=== PATIENT | female | born 1940 | race Hispanic/Latino ===

== ENCOUNTER → 2018-08-25 | Outpatient (CLI) | payer OTHER ==
[~2018-08-25] MED LIST: APIX5TAB PO; ASPI-555 PO; CALC-687 PO; DILT240C50 PO; GLIM2TAB3 PO; INSLAN SQ; LOSA50TA64 PO; METF-446 PO; METO-391 PO; ROSU20TA23 PO
== END | disposition home or self-care (01) ==
LOC: SHCH 11:20
PROVIDERS: ATTEND Internal Medicine Cardiovascular Disease
DX: I70.291 Other atherosclerosis of native arteries of extremities, right leg (principal)
CPT/HCPCS: 93925

== ENCOUNTER → 2018-09-08 | Outpatient (CLI) | payer OTHER ==
[~2018-09-08] VITALS: Ht 152.4 cm; Wt 74.4 kg
[~2018-09-08] MED LIST changes: +REGADENOSON 0.4 MG/5 ML PF SYG IVP SCH
== END | disposition home or self-care (01) ==
LOC: SHCH 08:52
PROVIDERS: ATTEND Internal Medicine Cardiovascular Disease
DX: I25.10 Atherosclerotic heart disease of native coronary artery without angina pectoris (principal)
CPT/HCPCS: 78452; 93017; 96374; A9500 ×2; J2785

== ENCOUNTER → 2018-10-09 | Outpatient (CLI) | payer OTHER ==
[~2018-10-09] MED LIST changes: -REGADENOSON 0.4 MG/5 ML PF SYG IVP SCH
== END | disposition home or self-care (01) ==
LOC: SHCH 14:39
PROVIDERS: ATTEND Internal Medicine Cardiovascular Disease
DX: I08.1 Rheumatic disorders of both mitral and tricuspid valves (principal); I27.20 Pulmonary hypertension, unspecified; I25.10 Atherosclerotic heart disease of native coronary artery without angina pectoris
CPT/HCPCS: 93306

== ENCOUNTER → 2020-03-06 | Outpatient (CLI) | payer OTHER ==
[~2020-03-06] MED LIST changes: -ASPI-555 PO; +ASPI-556 PO; -GLIM2TAB3 PO; +GLIM2TAB30 PO
== END | disposition home or self-care (01) ==
LOC: SHCH 10:00
PROVIDERS: ATTEND Internal Medicine Cardiovascular Disease
DX: I11.9 Hypertensive heart disease without heart failure (principal); I87.8 Other specified disorders of veins
CPT/HCPCS: 93306

== ENCOUNTER 2021-10-14 15:59 | Observation (INO) | payer OTHER ==
[~2021-10-14] VITALS: Ht 154.9 cm; Wt 68.9 kg
[2021-10-14 16:16] LABS: BASOPHILS % (AUTO) 0.4 % (0.0-5.0); EOSINOPHILS % (AUTO) 0.2 % (0.0-8.0); HEMATOCRIT 41.2 % (36-48); LYMPHOCYTES % (AUTO) 15.5 % (21.0-51.0); MEAN CORPUSCULAR HEMOGLOBIN 30.1 pg (27.0-33.0); MEAN CORPUSCULAR HGB CONC 34.5 g/dL (32.0-36.0); MEAN CORPUSCULAR VOLUME 87.5 fL (79-99); MONOCYTES % (AUTO) 3.2 % (3.0-13.0); NEUTROPHILS % (AUTO) 80.2 % (40.0-77.0); PLATELET COUNT (AUTO) 201 K/uL (130-400); RED BLOOD CELL COUNT(AUTO) 4.71 MIL/uL (4.00-5.50); RED CELL DISTRIBUTION WIDTH 13.5 % (11.0-15.5); WHITE BLOOD COUNT (AUTO) 8.4 K/uL (4.8-10.8)
[2021-10-14 16:29] LABS: CREATININE 0.8 mg/dL (0.5-1.5); POTASSIUM 3.9 mmol/L (3.5-5.1)
[2021-10-14] MEDS ORDERED: MECLIZINE HCL 25 MG TABLET PO ONE (16:30)
[2021-10-14] MEDS ORDERED: ONDANSETRON 4MG INJ IVP ONE (16:30)
[2021-10-14 16:33] LABS: ALBUMIN 4.1 g/dL (3.5-5.0); TOTAL PROTEIN, SERUM 8.2 g/dL (6.0-8.3)
[2021-10-14] MEDS ORDERED: 0.9%NACL 1000ML 1,000 ML IV ONE (17:41)
[2021-10-14] MEDS ORDERED: MECL-160 PO (18:07)
[2021-10-14] MEDS ORDERED: ONDA4TAB10 PO (18:07)
[2021-10-14] MEDS: 0.9%NACL 1000ML 1,000 ML IV SCH ×4 (18:13→19:19)
[2021-10-14] MEDS ORDERED: PROMETHAZINE HCL 25 MG/ML 1ML AMPULE IVPB SCH (18:30)
[2021-10-14] MEDS ORDERED: DOCUSATE SODIUM 100 MG CAP PO PRN (19:30)
[2021-10-14] MEDS ORDERED: TEMAZEPAM 15 MG CAPSULE PO PRN (19:30)
[2021-10-14] MEDS ORDERED: LACTULOSE 20 GM/30 ML UDCUP PO PRN (19:30)
[2021-10-14] MEDS ORDERED: ONDANSETRON 4MG INJ IVP PRN (19:30)
[2021-10-14] MEDS ORDERED: CLONIDINE HCL 0.1 MG TABLET PO PRN (19:30)
[2021-10-14] MEDS ORDERED: LABETALOL 20MG SYG IV PRN (19:30)
[2021-10-14] MEDS ORDERED: ACETAMINOPHEN 325 MG TAB PO PRN (19:30)
[2021-10-14] MEDS ORDERED: ACETAMINOPHEN 650 MG SUPPOSITORY RC PRN (19:30)
[2021-10-14] MEDS: ATORVASTATIN 40 MG TABLET PO SCH (20:50)
[2021-10-14] MEDS: APIXABAN 5 MG TABLET PO SCH (20:50)
[2021-10-14] MEDS: MECLIZINE HCL 25 MG TABLET PO SCH (20:50)
[2021-10-14] MEDS: INSULIN GLARGINE 100 UNITS/ML 10 ML VIAL SQ SCH (21:00)
[2021-10-14] MEDS ORDERED: CLONAZEPAM 1MG TAB PO STA (21:29)
[2021-10-14] MEDS ORDERED: ASPIRIN 325MG EC TAB PO STA (21:42)
[2021-10-14 21:46] VITALS: BP 137/82
[2021-10-14] MEDS ORDERED: PROPRANOLOL HCL 10 MG TAB PO STA (21:48)
[2021-10-14 23:22] VITALS: BP 137/86
[2021-10-15] MEDS: 0.9%NACL 1000ML 1,000 ML IV SCH (02:10)
[2021-10-15 03:20] VITALS: BP 125/64
[2021-10-15 04:52] LABS: BASOPHILS % (AUTO) 0.2 % (0.0-5.0); HEMATOCRIT 35.6 % (36-48); LYMPHOCYTES % (AUTO) 25.9 % (21.0-51.0); MEAN CORPUSCULAR HEMOGLOBIN 30.2 pg (27.0-33.0); MEAN CORPUSCULAR HGB CONC 34.6 g/dL (32.0-36.0); MEAN CORPUSCULAR VOLUME 87.5 fL (79-99); MONOCYTES % (AUTO) 9.9 % (3.0-13.0); NEUTROPHILS % (AUTO) 62.6 % (40.0-77.0); PLATELET COUNT (AUTO) 179 K/uL (130-400); RED BLOOD CELL COUNT(AUTO) 4.07 MIL/uL (4.00-5.50); RED CELL DISTRIBUTION WIDTH 13.6 % (11.0-15.5); WHITE BLOOD COUNT (AUTO) 9.8 K/uL (4.8-10.8)
[2021-10-15 05:20] LABS: CREATININE 0.7 mg/dL (0.5-1.5); MAGNESIUM 1.4 mg/dL (1.80-2.40); PHOSPHORUS 2.9 mg/dL (2.5-4.9); POTASSIUM 3.4 mmol/L (3.5-5.1); THYROID STIMULATING HORMONE 1.16 uIU/mL (0.36-3.74)
[2021-10-15 05:21] LABS: B-TYPE NATRIURETIC PEPTIDE 263 pg/mL (0-100)
[2021-10-15] MEDS ORDERED: MAGNESIUM 2GM PREMIX 50ML 50 ML IV PRN (06:00)
[2021-10-15] MEDS ORDERED: GLUCAGON 1MG KIT 1 MG ML IM PRN (06:00)
[2021-10-15] MEDS ORDERED: KCL 20 MEQ ERTAB PO PRN (06:00)
[2021-10-15] MEDS ORDERED: LIDOCAINE HCL-MPF 1% 2ML VIAL IV PRN (06:00)
[2021-10-15] MEDS ORDERED: POTASSIUM CHLORIDE 10% ELIXIR 20 MEQ/15 ML UDCUP PO PRN (06:00)
[2021-10-15] MEDS ORDERED: POTASSIUM CHLORIDE 20MEQ/100ML 100 ML IV PRN (06:00)
[2021-10-15] MEDS ORDERED: DEXTROSE 50%-WATER 50 ML DISP.SYRIN IV PRN (06:00)
[2021-10-15] MEDS: INSULIN HUMULIN R 100 UNIT/ML 3ML SQ SCH ×4 (06:09→21:00)
[2021-10-15 07:00] LABS: APPEARANCE,URINE CLEAR (CLEAR); BILIRUBIN,URINE NEGATIVE (NEGATIVE); COLOR,URINE YELLOW (YELLOW); GLUCOSE, URINE (UA) NEGATIVE (NEGATIVE); KETONES,URINE NEGATIVE (NEGATIVE); LEUKOCYTE ESTERASE ,URINE SMALL (NEGATIVE); NITRATE,URINE NEGATIVE (NEGATIVE); OCCULT BLOOD,URINE SMALL (NEGATIVE); PROTEIN,URINE NEGATIVE (NEGATIVE); UROBILINOGEN,URINE 0.2 mg/dL (0.2-1.0)
[2021-10-15 07:23] LABS: BACTERIA,URINE Rare /HPF (None Seen); RBC,URINE 0-1 /HPF (0-1); SQUAMOUS EPITHELIAL CELL,UR Rare /HPF (0-2); WBC,URINE 0-1 /HPF (0-1)
[2021-10-15 08:00] VITALS: BP 120/60
[2021-10-15] MEDS: CA 600MG+VIT D 400 UNIT TAB 1 TAB TABLET PO SCH (10:25)
[2021-10-15] MEDS: METOPROLOL SUCCINATE 50 MG TAB.SR.24H PO SCH (10:25)
[2021-10-15] MEDS: LOSARTAN 50 MG TABLET PO SCH (10:25)
[2021-10-15] MEDS: APIXABAN 5 MG TABLET PO SCH ×2 (10:26→20:40)
[2021-10-15] MEDS: MECLIZINE HCL 25 MG TABLET PO SCH ×3 (10:26→20:40)
[2021-10-15] MEDS: ASPIRIN 81 MG EC TAB PO SCH (10:26)
[2021-10-15] MEDS ORDERED: MAGNESIUM 2GM PREMIX 50ML 50 ML IV SCH (11:00)
[2021-10-15 12:00] VITALS: BP 117/56
[2021-10-15 16:00] VITALS: BP 121/67
[2021-10-15] MEDS ORDERED: IOHEXOL 350 MG/ML 100ML INFUS..BTL IV ONE (16:01)
[2021-10-15 20:00] VITALS: BP 142/74
[2021-10-15] MEDS: ATORVASTATIN 40 MG TABLET PO SCH (20:40)
[2021-10-15] MEDS: INSULIN GLARGINE 100 UNITS/ML 10 ML VIAL SQ SCH (22:09)
[2021-10-16] VITALS: BP 136/67
[2021-10-16 04:00] VITALS: BP 143/87
[2021-10-16 06:10] LABS: HEMATOCRIT 37.5 % (36-48); MEAN CORPUSCULAR HEMOGLOBIN 29.9 pg (27.0-33.0); MEAN CORPUSCULAR HGB CONC 33.6 g/dL (32.0-36.0); MEAN CORPUSCULAR VOLUME 89.1 fL (79-99); RED BLOOD CELL COUNT(AUTO) 4.21 MIL/uL (4.00-5.50); RED CELL DISTRIBUTION WIDTH 14.1 % (11.0-15.5); WHITE BLOOD COUNT (AUTO) 7.7 K/uL (4.8-10.8)
[2021-10-16 06:21] LABS: CREATININE 0.9 mg/dL (0.5-1.5); MAGNESIUM 1.7 mg/dL (1.80-2.40); POTASSIUM 3.8 mmol/L (3.5-5.1)
[2021-10-16] MEDS: INSULIN HUMULIN R 100 UNIT/ML 3ML SQ SCH ×4 (06:48→20:28)
[2021-10-16 08:00] VITALS: BP 155/95
[2021-10-16] MEDS: CA 600MG+VIT D 400 UNIT TAB 1 TAB TABLET PO SCH (08:09)
[2021-10-16] MEDS: APIXABAN 5 MG TABLET PO SCH ×2 (08:10→20:21)
[2021-10-16] MEDS: LOSARTAN 50 MG TABLET PO SCH (08:10)
[2021-10-16] MEDS: METOPROLOL SUCCINATE 50 MG TAB.SR.24H PO SCH (08:10)
[2021-10-16] MEDS: ASPIRIN 81 MG EC TAB PO SCH (08:10)
[2021-10-16] MEDS: MECLIZINE HCL 25 MG TABLET PO SCH ×3 (08:10→20:21)
[2021-10-16 12:00] VITALS: BP 126/73
[2021-10-16 16:00] VITALS: BP 138/77
[2021-10-16 20:00] VITALS: BP 145/75
[2021-10-16] MEDS: ATORVASTATIN 40 MG TABLET PO SCH (20:21)
[2021-10-16] MEDS: INSULIN GLARGINE 100 UNITS/ML 10 ML VIAL SQ SCH (20:37)
[2021-10-17] VITALS: BP 147/84
[2021-10-17 04:00] VITALS: BP 113/71
[2021-10-17] MEDS: INSULIN HUMULIN R 100 UNIT/ML 3ML SQ SCH ×4 (06:30→20:52)
[2021-10-17 07:20] VITALS: BP 135/73
[2021-10-17] MEDS: ASPIRIN 81 MG EC TAB PO SCH (08:46)
[2021-10-17] MEDS: LOSARTAN 50 MG TABLET PO SCH (08:47)
[2021-10-17] MEDS: MECLIZINE HCL 25 MG TABLET PO SCH ×3 (08:47→20:53)
[2021-10-17] MEDS: METOPROLOL SUCCINATE 50 MG TAB.SR.24H PO SCH (08:47)
[2021-10-17] MEDS: APIXABAN 5 MG TABLET PO SCH ×2 (08:47→20:53)
[2021-10-17] MEDS: CA 600MG+VIT D 400 UNIT TAB 1 TAB TABLET PO SCH (08:47)
[2021-10-17 11:20] VITALS: BP 126/89
[2021-10-17 15:25] VITALS: BP 137/78
[2021-10-17 20:30] VITALS: BP 120/54
[2021-10-17] MEDS: ATORVASTATIN 40 MG TABLET PO SCH (20:53)
[2021-10-18 00:12] VITALS: BP 122/75
[2021-10-18 04:36] VITALS: BP 124/76
[2021-10-18] MEDS: INSULIN HUMULIN R 100 UNIT/ML 3ML SQ SCH ×4 (06:49→21:05)
[2021-10-18 07:59] VITALS: BP 163/77
[2021-10-18 08:48] LABS: CREATININE 0.9 mg/dL (0.5-1.5); POTASSIUM 3.8 mmol/L (3.5-5.1)
[2021-10-18] MEDS: ASPIRIN 81 MG EC TAB PO SCH (08:48)
[2021-10-18] MEDS: APIXABAN 5 MG TABLET PO SCH ×2 (08:49→21:04)
[2021-10-18] MEDS: METOPROLOL SUCCINATE 50 MG TAB.SR.24H PO SCH (08:49)
[2021-10-18] MEDS: MECLIZINE HCL 25 MG TABLET PO SCH ×3 (08:49→21:04)
[2021-10-18] MEDS: LOSARTAN 50 MG TABLET PO SCH (08:49)
[2021-10-18] MEDS: CA 600MG+VIT D 400 UNIT TAB 1 TAB TABLET PO SCH (08:49)
[2021-10-18 12:00] VITALS: BP 109/57
[2021-10-18 15:57] VITALS: BP 115/64
[2021-10-18 19:35] VITALS: BP 113/73
[2021-10-18] MEDS ORDERED: MAGN500C4 PO (20:06)
[2021-10-18] MEDS: ATORVASTATIN 40 MG TABLET PO SCH (21:04)
== END 2021-10-18 22:30 ==
LOC: EDH 15:59 → EDHIP 19:01 → 3DH 20:35
PROVIDERS: ADMIT Internal Medicine; ATTEND Internal Medicine
DX: R42 Dizziness and giddiness (principal); Z20.822 Contact with and (suspected) exposure to COVID-19; I99.8 Other disorder of circulatory system; E11.65 Type 2 diabetes mellitus with hyperglycemia; S06.0X9A Concussion with loss of consciousness of unspecified duration, initial encounter; E78.00 Pure hypercholesterolemia, unspecified; G25.71 Drug induced akathisia; T42.6X5A Adverse effect of other antiepileptic and sedative-hypnotic drugs, initial encounter; E86.0 Dehydration; H55.00 Unspecified nystagmus; I10 Essential (primary) hypertension; I48.91 Unspecified atrial fibrillation; J45.909 Unspecified asthma, uncomplicated; R29.700 NIHSS score 0; Z79.01 Long term (current) use of anticoagulants; Z98.49 Cataract extraction status, unspecified eye; Z79.899 Other long term (current) drug therapy; Z98.890 Other specified postprocedural states; Z79.84 Long term (current) use of oral hypoglycemic drugs; Z79.4 Long term (current) use of insulin; W19.XXXA Unspecified fall, initial encounter; Y92.89 Other specified places as the place of occurrence of the external cause; Y93.89 Activity, other specified; Y99.8 Other external cause status
CPT/HCPCS: 96361 ×2; 96375; 99285; 84484 ×2; 80053; 85025 ×2; 82948 ×19; 36415 ×4; 87635; 71045; 70450; 93306 ×2; 93356; 93005 ×2; 96365; 96366; 83036; 84443; 83735 ×2; 84100; 80048 ×3; 83880; 82140; 82607; 82746; 81001; 70496; 70498; 70551; 97039 ×4; 85027; 97161; 97116 ×2; G0378 ×96; C9803; J7030 ×3; J2405; J3475; Q9967; J1815 ×5

== ENCOUNTER 2022-01-04 12:51 | Observation (INO) | payer OTHER ==
[~2022-01-04] VITALS: Ht 152.4 cm; Wt 67.7 kg
[~2022-01-04 12:51] MED LIST changes: -DILT240C50 PO; -GLIM2TAB30 PO; +MAGN500C4 PO; +MECL-160 PO; -METF-446 PO; +ONDA4TAB10 PO; -ROSU20TA23 PO
[2022-01-04] MEDS ORDERED: DILTIAZEM 25MG INJ IVP STA (13:18)
[2022-01-04 13:56] LABS: BASOPHILS % (AUTO) 0.2 % (0.0-5.0); EOSINOPHILS % (AUTO) 0.5 % (0.0-8.0); HEMATOCRIT 37.8 % (36-48); MEAN CORPUSCULAR HGB CONC 34.4 g/dL (32.0-36.0); MEAN CORPUSCULAR VOLUME 87.1 fL (79-99); MONOCYTES % (AUTO) 2.5 % (3.0-13.0); NEUTROPHILS % (AUTO) 94.3 % (40.0-77.0); PLATELET COUNT (AUTO) 229 K/uL (130-400); RED BLOOD CELL COUNT(AUTO) 4.34 MIL/uL (4.00-5.50); RED CELL DISTRIBUTION WIDTH 13.3 % (11.0-15.5); WHITE BLOOD COUNT (AUTO) 19.8 K/uL (4.8-10.8)
[2022-01-04 14:18] LABS: CREATININE 0.8 mg/dL (0.5-1.5); POTASSIUM 3.9 mmol/L (3.5-5.1)
[2022-01-04 14:24] LABS: ALBUMIN 3.5 g/dL (3.5-5.0); TOTAL PROTEIN, SERUM 7.5 g/dL (6.0-8.3)
[2022-01-04 14:32] LABS: B-TYPE NATRIURETIC PEPTIDE 238 pg/mL (0-100)
[2022-01-04] MEDS ORDERED: PHARMACY COMMUNICATION MISC STA (14:47)
[2022-01-04] MEDS ORDERED: DILTIAZEM 125 MG/25 ML INJ 125 MG in 0.9%NACL 100ML 100 ML IV PRN (15:00)
[2022-01-04] MEDS ORDERED: IOHEXOL 350 MG/ML 100ML INFUS..BTL IV ONE (16:23)
[2022-01-04] MEDS ORDERED: KCL 20 MEQ ERTAB PO PRN (21:30)
[2022-01-04] MEDS ORDERED: LACTULOSE 20 GM/30 ML UDCUP PO PRN (21:30)
[2022-01-04] MEDS ORDERED: DEXTROSE 50%-WATER 50 ML DISP.SYRIN IV PRN (21:30)
[2022-01-04] MEDS ORDERED: TEMAZEPAM 15 MG CAPSULE PO PRN (21:30)
[2022-01-04] MEDS ORDERED: GLUCAGON 1MG KIT 1 MG ML IM PRN (21:30)
[2022-01-04] MEDS ORDERED: CLONIDINE HCL 0.1 MG TABLET PO PRN (21:30)
[2022-01-04] MEDS ORDERED: LIDOCAINE HCL-MPF 1% 2ML VIAL IV PRN (21:30)
[2022-01-04] MEDS ORDERED: ACETAMINOPHEN 650 MG SUPPOSITORY RC PRN (21:30)
[2022-01-04] MEDS ORDERED: ALBUTEROL 0.083% 2.5 MG/3 ML INH IH PRN (21:30)
[2022-01-04] MEDS ORDERED: ONDANSETRON 4MG INJ IVP PRN (21:30)
[2022-01-04] MEDS ORDERED: HYDRALAZINE 20MG/ML VIAL IV PRN (21:30)
[2022-01-04] MEDS ORDERED: POTASSIUM CHLORIDE 20MEQ/100ML 100 ML IV PRN (21:30)
[2022-01-04] MEDS ORDERED: LABETALOL 20MG SYG IV PRN (21:30)
[2022-01-04] MEDS ORDERED: DOCUSATE SODIUM 100 MG CAP PO PRN (21:30)
[2022-01-04] MEDS ORDERED: ACETAMINOPHEN 325 MG TAB PO PRN (21:30)
[2022-01-04] MEDS: IPRATROPIUM 0.5 MG/2.5 ML INH IH SCH (23:06)
[2022-01-05] VITALS (8 sets, daily range): BP systolic 105–146; BP diastolic 47–86
[2022-01-05 04:07] LABS: BASOPHILS % (AUTO) 0.4 % (0.0-5.0); EOSINOPHILS % (AUTO) 6.6 % (0.0-8.0); HEMATOCRIT 32.9 % (36-48); LYMPHOCYTES % (AUTO) 9.5 % (21.0-51.0); MEAN CORPUSCULAR HEMOGLOBIN 29.7 pg (27.0-33.0); MEAN CORPUSCULAR VOLUME 87.3 fL (79-99); MONOCYTES % (AUTO) 4.8 % (3.0-13.0); NEUTROPHILS % (AUTO) 78.2 % (40.0-77.0); PLATELET COUNT (AUTO) 207 K/uL (130-400); RED BLOOD CELL COUNT(AUTO) 3.77 MIL/uL (4.00-5.50); RED CELL DISTRIBUTION WIDTH 13.5 % (11.0-15.5); WHITE BLOOD COUNT (AUTO) 10.9 K/uL (4.8-10.8)
[2022-01-05 04:18] LABS: CREATININE 0.7 mg/dL (0.5-1.5); MAGNESIUM 1.5 mg/dL (1.80-2.40); PHOSPHORUS 2.8 mg/dL (2.5-4.9); POTASSIUM 3.5 mmol/L (3.5-5.1)
[2022-01-05] MEDS: MAGNESIUM 2GM PREMIX 50ML 50 ML IV PRN (04:33)
[2022-01-05] MEDS: INSULIN HUMULIN R 100 UNIT/ML 3ML SQ SCH ×4 (05:15→19:33)
[2022-01-05] MEDS: IPRATROPIUM 0.5 MG/2.5 ML INH IH SCH ×3 (07:18→18:49)
[2022-01-05] MEDS: PANTOPRAZOLE 40 MG/VIAL IVP SCH ×2 (08:19→19:33)
[2022-01-05] MEDS: METOPROLOL SUCCINATE 50 MG TAB.SR.24H PO SCH (08:20)
[2022-01-05] MEDS: LEVOFLOXACIN 750 MG/D5W 150ML BAG IVPB SCH (08:21)
[2022-01-05] MEDS ORDERED: ENOXAPARIN SODIUM 1 MG/KG SQ SCH (09:00)
[2022-01-05] MEDS ORDERED: ENOXAPARIN SODIUM 80 MG/0.8 ML SQ SCH (09:00)
[2022-01-05] MEDS ORDERED: APIXABAN 5 MG TABLET PO SCH (13:58)
[2022-01-05] MEDS: APIXABAN 5 MG TABLET PO SCH (19:33)
[2022-01-06] MEDS: IPRATROPIUM 0.5 MG/2.5 ML INH IH SCH ×3 (02:48→11:17)
[2022-01-06 03:31] VITALS: BP 130/74
[2022-01-06 04:08] LABS: HEMATOCRIT 34.5 % (36-48); MEAN CORPUSCULAR HEMOGLOBIN 29.7 pg (27.0-33.0); MEAN CORPUSCULAR HGB CONC 34.2 g/dL (32.0-36.0); MEAN CORPUSCULAR VOLUME 86.9 fL (79-99); RED BLOOD CELL COUNT(AUTO) 3.97 MIL/uL (4.00-5.50); RED CELL DISTRIBUTION WIDTH 13.2 % (11.0-15.5); WHITE BLOOD COUNT (AUTO) 7.6 K/uL (4.8-10.8)
[2022-01-06 04:24] LABS: ALBUMIN 2.9 g/dL (3.5-5.0); CREATININE 0.8 mg/dL (0.5-1.5); MAGNESIUM 1.6 mg/dL (1.80-2.40); POTASSIUM 3.5 mmol/L (3.5-5.1); TOTAL PROTEIN, SERUM 6.7 g/dL (6.0-8.3)
[2022-01-06] MEDS: INSULIN HUMULIN R 100 UNIT/ML 3ML SQ SCH ×2 (05:31→11:30)
[2022-01-06 07:44] VITALS: BP 137/78
[2022-01-06] MEDS: LEVOFLOXACIN 750 MG/D5W 150ML BAG IVPB SCH (07:46)
[2022-01-06] MEDS: APIXABAN 5 MG TABLET PO SCH (07:52)
[2022-01-06] MEDS: POTASSIUM CHLORIDE 10% ELIXIR 20 MEQ/15 ML UDCUP PO PRN ×2 (07:52→12:15)
[2022-01-06] MEDS: METOPROLOL SUCCINATE 50 MG TAB.SR.24H PO SCH (07:52)
[2022-01-06] MEDS: PANTOPRAZOLE 40 MG/VIAL IVP SCH (07:53)
[2022-01-06 11:42] VITALS: BP 119/70
[2022-01-06] MEDS: MAGNESIUM 2GM PREMIX 50ML 50 ML IV PRN (12:17)
[2022-01-06] MEDS ORDERED: LEVO750T68 PO (14:52)
[2022-01-06] MEDS ORDERED: METO-391 PO (14:52)
[2022-01-06] MEDS ORDERED: METF-444 PO (15:15)
[2022-01-06] MEDS ORDERED: FLUT1DIS IH (15:15)
[2022-01-06] MEDS ORDERED: GUAI600T50 PO (15:16)
[2022-01-06] MEDS ORDERED: ROSU20TA31 PO (15:18)
[2022-01-06] MEDS ORDERED: ALBU0.63 IH (15:18)
[2022-01-06] MEDS ORDERED: PANT20TA18 PO (15:20)
== END 2022-01-06 16:20 | disposition home or self-care (01) ==
LOC: EDH 12:51 → EDHIP 19:04 → 2AH 23:14
PROVIDERS: ADMIT Internal Medicine Critical Care Medicine; ATTEND Internal Medicine Critical Care Medicine
DX: A41.9 Sepsis, unspecified organism (principal); I48.20 Chronic atrial fibrillation, unspecified; D72.829 Elevated white blood cell count, unspecified; N39.0 Urinary tract infection, site not specified; I10 Essential (primary) hypertension; E11.9 Type 2 diabetes mellitus without complications; E78.00 Pure hypercholesterolemia, unspecified; E78.5 Hyperlipidemia, unspecified; J45.909 Unspecified asthma, uncomplicated; Z79.4 Long term (current) use of insulin; Z79.82 Long term (current) use of aspirin; Z98.49 Cataract extraction status, unspecified eye; Z79.899 Other long term (current) drug therapy; Z98.890 Other specified postprocedural states
CPT/HCPCS: 96376 ×3; 96365; 96366 ×3; 99285; 84484; 80053 ×2; 83880; 85025 ×2; 85378; 87040 ×2; 83605; 36415 ×3; 71045; 71270; 74176; 93005; 94640 ×6; 94664; 96372; 96375; 96367 ×2; 83735 ×2; 84100; 80048; 87880; 87804 ×2; 82948 ×7; 87635; 93306; 84145; 85027; G0378 ×42; J3490; Q9967; J1815; J3475 ×2; J1956 ×2; J1650; C9113 ×3

== ENCOUNTER → 2022-08-16 | Outpatient (CLI) | payer OTHER ==
[~2022-08-16] MED LIST changes: +ALBU0.63 IH; +FLUT1DIS IH; +GUAI600T50 PO; +LEVO750T68 PO; +METF-444 PO; +PANT20TA18 PO; +ROSU20TA73 PO
== END | disposition home or self-care (01) ==
LOC: RAH 13:54
PROVIDERS: ATTEND Internal Medicine
DX: I62.00 Nontraumatic subdural hemorrhage, unspecified (principal)
CPT/HCPCS: 70450

== ENCOUNTER 2022-11-20 10:11 | Emergency (ER) | payer OTHER ==
[~2022-11-20] VITALS: Ht 152.4 cm; Wt 72.6 kg
[2022-11-20] MEDS ORDERED: IOHEXOL-350 75 ML VIAL IV ONE (10:12)
[2022-11-20] MEDS ORDERED: ASPIRIN 325MG TAB PO ONE (11:00)
[2022-11-20 11:22] LABS: BASOPHILS # (AUTO) 0.04 K/uL (0.00-0.20); BASOPHILS % (AUTO) 0.4 % (0.0-5.0); EOSINOPHILS # (AUTO) 0.03 K/uL (0.00-0.70); EOSINOPHILS % (AUTO) 0.3 % (0.0-8.0); HEMATOCRIT 41.5 % (36-48); IMMATURE GRANULOCYTE ABSOLUTE 0.04 K/uL (0-1); LYMPHOCYTES # (AUTO) 1.6 K/uL (1.0-4.8); LYMPHOCYTES % (AUTO) 17.7 % (21.0-51.0); MEAN CORPUSCULAR HEMOGLOBIN 30.3 pg (27.0-33.0); MEAN CORPUSCULAR HGB CONC 34.5 g/dL (32.0-36.0); MEAN CORPUSCULAR VOLUME 87.9 fL (79-99); MONOCYTES # (AUTO) 0.5 K/uL (0.1-1.0); MONOCYTES % (AUTO) 5.2 % (3.0-13.0); PLATELET COUNT (AUTO) 185 K/uL (130-400); RED BLOOD CELL COUNT(AUTO) 4.72 MIL/uL (4.00-5.50); RED CELL DISTRIBUTION WIDTH 13.4 % (11.0-15.5); WHITE BLOOD COUNT (AUTO) 9.2 K/uL (4.8-10.8)
[2022-11-20 11:24] LABS: CREATININE 0.8 mg/dL (0.5-1.5); POTASSIUM 3.4 mmol/L (3.5-5.1)
[2022-11-20 11:35] LABS: BILIRUBIN,TOTAL 0.5 mg/dL (0.2-1.0)
[2022-11-20 11:40] LABS: INR 0.98 (0.85-1.15); PROTHROMBIN TIME 11.4 SEC (9.6-11.6)
[2022-11-20 11:42] LABS: PARTIAL THROMBOPLASTIN TIME 35.3 SEC (26.3-35.5)
[2022-11-20] MEDS ORDERED: METF-444 PO (15:59)
[2022-11-20] MEDS ORDERED: APIX5TAB PO (15:59)
[2022-11-20] MEDS ORDERED: INSU3INS9 SQ (16:01)
[2022-11-20 16:03] VITALS: BP 136/52; PULSE 82; RESP 16; O2SAT 96
[2022-11-20 17:17] LABS: APPEARANCE,URINE CLEAR (CLEAR); BILIRUBIN,URINE NEGATIVE (NEGATIVE); COLOR,URINE LIGHT-YELLOW (YELLOW); GLUCOSE, URINE (UA) NEGATIVE (NEGATIVE); KETONES,URINE 5 mg/dL (NEGATIVE); LEUKOCYTE ESTERASE ,URINE NEGATIVE Leu/uL (NEGATIVE); NITRATE,URINE NEGATIVE (NEGATIVE); OCCULT BLOOD,URINE MODERATE (NEGATIVE); PROTEIN,URINE 30 mg/dL (NEGATIVE); UROBILINOGEN,URINE 0.2 mg/dL (0.2-1.0)
[2022-11-20 17:22] LABS: ADD UA MICROSCOPIC YES
[2022-11-20 17:35] LABS: BACTERIA,URINE RARE /HPF (None Seen); SQUAMOUS EPITHELIAL CELL,UR RARE /HPF (0-2); YEAST,URINE BUDDING RARE /HPF (None Seen)
== END 2022-11-20 18:41 | disposition short-term general hospital (02) ==
LOC: EDH 10:11
DX: I63.9 Cerebral infarction, unspecified (principal); E11.9 Type 2 diabetes mellitus without complications; E78.00 Pure hypercholesterolemia, unspecified; I10 Essential (primary) hypertension; I48.91 Unspecified atrial fibrillation; J45.909 Unspecified asthma, uncomplicated; Z79.01 Long term (current) use of anticoagulants; Z79.51 Long term (current) use of inhaled steroids; Z79.82 Long term (current) use of aspirin; Z79.899 Other long term (current) drug therapy; Z87.440 Personal history of urinary (tract) infections; Z88.0 Allergy status to penicillin; Z88.4 Allergy status to anesthetic agent
CPT/HCPCS: 99285; 70496; 71045; 82550; 83721; 83874; 84484; 80053; 83880; 85025; 85610; 85730; 87088; 82948; 81001; 36415; 70498; 93005; 70450; Q9967

== ENCOUNTER → 2023-04-10 | Outpatient (CLI) | payer OTHER, MEDICARE ==
[~2023-04-10] MED LIST changes: -ALBU0.63 IH; -ASPI-556 PO; -CALC-687 PO; -FLUT1DIS IH; -GUAI600T50 PO; -INSLAN SQ; +INSU3INS9 SQ; -LEVO750T68 PO; -MAGN500C4 PO; -MECL-160 PO; +MECL-302 PO; -ONDA4TAB10 PO
== END | disposition home or self-care (01) ==
LOC: RAH 14:01
PROVIDERS: ATTEND Internal Medicine
DX: S09.90XA Unspecified injury of head, initial encounter (principal); G31.89 Other specified degenerative diseases of nervous system; X58.XXXA Exposure to other specified factors, initial encounter; Y93.89 Activity, other specified; Y92.89 Other specified places as the place of occurrence of the external cause; Y99.8 Other external cause status
CPT/HCPCS: 70450